=== PATIENT | female | born 1985 | race Caucasian/White ===

== ENCOUNTER → 2021-03-26 15:24 | Outpatient (CLI) | payer OTHER, SELFPAY ==
[2021-03-26] MEDS: COVID-19 VACC #3, MRNA(MOD) 50 MCG/0.25 ML VIAL IM (15:28)
== END ==
PROVIDERS: Visit Provider Internal Medicine
DX: Z23 Encounter for immunization (principal)
CPT/HCPCS: 0013A; 91301

== ENCOUNTER → 2022-12-20 10:21 | Outpatient (CLI) | payer OTHER, SELFPAY | PROVIDERS: Visit Provider Student in an Organized Health Care Education/Training Program | DX: M54.50 Low back pain, unspecified (principal) | CPT/HCPCS: 87086 ==

== ENCOUNTER 2022-12-20 10:35 | Observation (INO) | payer OTHER, SELFPAY ==
[2022-12-20 11:23] VITALS: BP 165/108; PULSE 90; RESP 19; TEMP 36.3; O2SAT 100; BMI 34.3
[2022-12-20 11:49] LABS: Add Manual Diff / Slide Review NO; Basophils Absolute Auto 0 /uL (0-100); Basophils Percent Auto 0.6 % (0-2); Eosinophils Absolute Auto 200 /uL (0-450); Eosinophils Percent Auto 3.9 % (2-4); Hematocrit 39.5 % (36-46); Hemoglobin 13.2 g/dL (12.0-16.0); Lymphocytes Absolute Auto 1400 /uL (1100-4500); Lymphocytes Percent Auto 22.8 % (25-40); Mean Corpuscular HGB Conc 33.3 % (30-36); Mean Corpuscular Hemoglobin 27.9 PG (26-34); Mean Corpuscular Volume 83.7 fL (80-100); Monocytes Absolute Auto 200 /uL (0-900); Neutrophils Absolute Auto 4100 /uL (1500-7000); Neutrophils Percent Auto 68.7 % (50-75); Platelet Count 299 X10^3/uL (150-400); Red Blood Cell Count 4.72 X10^6/uL (4.0-5.2); Red Cell Distribution Width 13.1 % (11.6-14.8)
[2022-12-20 12:01] LABS: Albumin 4.3 g/dL (3.5-5.0); Albumin Globulin Ratio 1.2 (1.0-2.8); Alkaline Phosphatase 181 U/L (38-126); Aspartate Aminotransferase 449 IU/L (14-36); BUN Creatinine Ratio 12.4 (6-22); Bilirubin Total 0.6 mg/dL (0.2-1.3); Blood Urea Nitrogen 12 mg/dL (7-17); Calcium 8.9 mg/dL (8.4-10.2); Carbon Dioxide 26 mmol/L (22-32); Chloride 105 mmol/L (98-107); Estimated Glomerular Filt Rate > 60 mL/min (>60); Globulin 3.7 g/dL (1.7-4.1); Glucose 98 mg/dL (70-100); HEMOLYSIS < 15 (0-50); Lipase 1363 U/L (23-300); Potassium 4.3 mmol/L (3.4-5.1); Sodium 137 mmol/L (137-145)
[2022-12-20 12:08] LABS: Alanine Aminotransferase 394 IU/L (<35)
--- NOTE | 2022-12-20 13:15 | DI.US.S_ITS ---
PROCEDURE: US ABDOMEN LIMITED INDICATIONS: abd pain, elevated lfts TECHNIQUE: Real-time scanning was performed of the abdominal and retroperitoneal organs, with image documentation. COMPARISON: None. FINDINGS: Liver: Increased liver echogenicity. Gallbladder: Cholelithiasis, nonmobile at the neck. Positive sonographic Bell sign. Borderline wall thickening at 3 millimeters. Biliary ducts: Intrahepatic bile ducts are non-dilated. Extrahepatic bile duct caliber measures 4 mm. Normal is 6-7 mm or less in diameter, or 10 mm or less post-cholecystectomy. Pancreas: Visualized portions of the pancreas are sonographically normal. Miscellaneous: No free abdominal fluid. IMPRESSION: Nonmobile gallstone in the gallbladder neck. Positive sonographic Bell sign and borderline wall thickening. Findings are concerning for acute cholecystitis. Increased liver echogenicity, presumably hepatic steatosis. Dictated by: Randolph Hunter M.D. on 12/20/2022 at 14:19 Approved by: Randolph Hunter M.D. on 12/20/2022 at 14:21
--- NOTE | 2022-12-20 14:44 | ED.ABDPAIN ---
HPI - Abdominal Pain General Chief Complaint: Abdominal Pain Stated Complaint: L/ Upper Abd pain/ tenderness Time Seen by Provider: 12/20/22 13:15 Source: patient Mode of arrival: Family Vehicle History of Present Illness HPI narrative: 37-year-old female history of seasonal allergies who presents with complaint of abdominal pain bilateral radiating towards her back. She states sudden onset yesterday has been persistent not quite as intense today. She states she was very sweaty yesterday. No documented fevers. She had nausea yesterday but no vomiting. She states pain is still present but controlled at this time. She did have little bit of diarrhea. No black or bloody stools. No dysuria urgency or frequency she felt her urine was little warm. No vaginal bleeding or discharge. Patient denies any other daily medications besides her allergy medication. No prior surgeries. No known drug allergies. No tobacco, 1 alcoholic drink once weekly, no recreational drugs or illicit. Related Data Home Medications Medication Instructions Recorded Confirmed loratadine 10 mg tablet (Claritin) 10 mg PO DAILY 12/20/22 12/20/22 Allergies Allergy/AdvReac Type Severity Reaction Status Date / Time No Known Drug Allergies Allergy Verified 12/20/22 11:27 Review of Systems Review of Systems ROS Unobtainable: All systems reviewed & are unremarkable except as noted in HPI and below Patient History Social History household members: friend(s) Smoking Status: Never smoker alcohol intake: current Smoking Status: Never smoker alcohol intake frequency: 0-2 drinks per day Substance Use Type: does not use Exam Narrative Exam Narrative: GENERAL: Alert and oriented x three, female in mild distress HEENT: Head normocephalic, atraumatic, EOMI, pupils reactive, face symmetric, moist mucous membranes NECK: Supple, full range of motion CARDIOVASCULAR: Regular rate and rhythm without murmurs, rubs or gallops. RESPIRATORY: Breath sounds equal bilaterally, no wheezes rales or rhonchi. ABDOMEN: Soft, generalized tenderness particularly in right upper quadrant. Normoactive bowel sounds all 4 quadrants. No guarding or rebound, rigidity, no mass : No CVA tenderness EXTREMITIES: Normal range of motion, no clubbing or edema. Neurovascularly intact NEUROLOGICAL: Cranial nerves II through XII grossly intact. Moving all extremities SKIN: Warm, dry, no petechiae, no rashes or lesions. Initial Vital Signs Initial Vital Signs: Vital Signs Temperature 97.4 F L 12/20/22 11:23 Pulse Rate 90 12/20/22 11:23 Respiratory Rate 19 12/20/22 11:23 Blood Pressure 165/108 H 12/20/22 11:23 Pulse Oximetry 100 12/20/22 11:23 Oxygen Delivery Method Room Air 12/20/22 11:23 Course Orders Ordered: ED Orders 12/20/22 11:42 Complete Blood Count AUTO DIFF Stat Comprehensive Metabolic Panel Stat Lipase Stat Test Serum,Qual Stat 12/20/22 13:15 US abdomen limited Stat Acetaminophen (Acetaminophen 325 Mg Tablet) 650 mg PO Q6H [facility] Last Admin: 12/20/22 17:26 Dose: Not Given Documented By: TLS Gabapentin (Gabapentin 100 Mg Capsule) 300 mg PO TID [facility] Last Admin: 12/20/22 17:27 Dose: Not Given Documented By: TLS Lactated Ringer's (Lactated Ringers) 1,000 mls @ 100 mls/hr IV CONT [facility] Last Admin: 12/20/22 17:48 Dose: 100 mls/hr Documented By: TLS Ibuprofen (Ibuprofen 600 Mg Tablet) 600 mg PO Q6H [facility] Last Admin: 12/20/22 17:26 Dose: Not Given Documented By: TLS Morphine Sulfate (Morphine 4 Mg/Ml Inj) 3 mg IV Q4HR PRN PRN Reason: Pain, Severe (7-10) Naloxone HCl (Naloxone 0.4 Mg/Ml Vial) 0.2 mg IV Q2MIN PRN PRN Reason: Opiate Reversal Ondansetron HCl (Ondansetron 4 Mg Odt) 4 mg PO NOW PRN PRN Reason: Nausea And Vomiting Ondansetron HCl (Ondansetron 4 Mg/2 Ml Inj) 4 mg IV NOW PRN PRN Reason: Nausea And Vomiting Ondansetron HCl (Ondansetron 4 Mg/2 Ml Inj) 4 mg IV Q8HR PRN PRN Reason: Nausea And Vomiting Oxycodone HCl (Oxycodone Ir 5 Mg Tablet) 5 mg PO Q3H PRN PRN Reason: Pain, Moderate (4-6) Scopolamine (Scopolamine 1 Patch) 1 patch TOP Q72H [facility] Last Admin: 12/20/22 17:46 Dose: 1 patch Documented By: TLS Discontinued Medications Sodium Chloride (Normal Saline 0.9%) 1,000 mls @ 1,000 mls/hr IV BOLUS ONE Stop: 12/20/22 15:43 Last Admin: 12/20/22 15:07 Dose: 1,000 mls/hr Documented By: TESSA Piperacillin Sod/Tazobactam (Sod 4.5 gm/ Sodium Chloride) 100 mls @ 200 mls/hr IV NOW ONE Stop: 12/20/22 14:54 Last Infusion: 12/20/22 15:46 Dose: 0 mls/hr Documented By: Admin: 12/20/22 15:07 Dose: 200 mls/hr Documented By: TESSA Cefazolin Sodium 2 gm/ Sodium (Chloride) 100 mls @ 200 mls/hr IV INTRA-OP ONE Stop: 12/20/22 16:32 Last Admin: 12/20/22 17:47 Dose: 200 mls/hr Documented By: TLS Vital Signs Vital signs: Vital Signs - 8 hr 12/20/22 11:23 Temperature 97.4 F L Pulse Rate 90 Respiratory Rate 19 Blood Pressure 165/108 H Pulse Oximetry 100 Oxygen Delivery Method Room Air MDM - Abdominal Pain Lab Data 12/20/22 11:42 12/20/22 11:42 Labs: Lab Results 12/20/22 12/20/22 12/20/22 Range/Units 11:42 11:42 11:42 WBC 6.0 (4.5-11.0) X10^3/uL RBC 4.72 (4.0-5.2) X10^6/uL Hgb 13.2 (12.0-16.0) g/dL Hct 39.5 (36-46) % MCV 83.7 (80-100) fL MCH 27.9 (26-34) PG MCHC 33.3 (30-36) % RDW 13.1 (11.6-14.8) % Plt Count 299 (150-400) X10^3/uL Neut % (Auto) 68.7 (50-75) % Lymph % (Auto) 22.8 L (25-40) % [place] % (Auto) 4.0 (3-14) % Eos % (Auto) 3.9 (2-4) % Baso % (Auto) 0.6 (0-2) % Neut # (Auto) 4100 (1404-4819) /uL Lymph # (Auto) 1400 (2541-0309) /uL [place] # (Auto) 200 (0-900) /uL Eos # (Auto) 200 (0-450) /uL Baso # (Auto) 0 (0-100) /uL Sodium 137 (137-145) mmol/L Potassium 4.3 (3.4-5.1) mmol/L Chloride 105 (98-107) mmol/L Carbon Dioxide 26 (22-32) mmol/L BUN 12 (7-17) mg/dL Creatinine 0.97 (0.52-1.04) mg/dL Estimated GFR > 60 (>60) mL/min BUN/Creatinine Ratio 12.4 (6-22) Glucose 98 (70-100) mg/dL Calcium 8.9 (8.4-10.2) mg/dL Total Bilirubin 0.6 (0.2-1.3) mg/dL AST 449 H (14-36) IU/L ALT 394 H (<35) IU/L Alkaline Phosphatase 181 H (38-126) U/L Total Protein 8.0 (6.3-8.2) g/dL Albumin 4.3 (3.5-5.0) g/dL Globulin 3.7 (1.7-4.1) g/dL Albumin/Globulin Ratio 1.2 (1.0-2.8) Lipase 1363 H (23-300) U/L Serum , Qual Negative (Negative) Imaging Data US - abdomen: Radiologist's Impression: [address] [address] Ultrasound Report Signed Patient: Brooklyn Lehman MR#: [id number] : 1985 Acct:[id number] Age/Sex: 37 / F Date of Service: 12/20/22 Loc: ED Accession Number: [id number] ?? Procedure: US abdomen limited Ordering Provider: Amina Ndiaye D.O. PROCEDURE:? US ABDOMEN LIMITED ? INDICATIONS:? abd pain, elevated lfts ? TECHNIQUE:? Real-time scanning was performed of the abdominal and retroperitoneal organs, with image documentation.? ? COMPARISON:? None. ? FINDINGS:? ? Liver:? Increased liver echogenicity. ? Gallbladder:? Cholelithiasis, nonmobile at the neck.? Positive sonographic Bell sign.? Borderline wall thickening at 3 millimeters. ? Biliary ducts:? Intrahepatic bile ducts are non-dilated.? Extrahepatic bile duct caliber measures 4 mm.? Normal is 6-7 mm or less in diameter, or 10 mm or less post-cholecystectomy.? ? Pancreas:? Visualized portions of the pancreas are sonographically normal.? ? Miscellaneous:? No free abdominal fluid.? ? ? IMPRESSION:? Nonmobile gallstone in the gallbladder neck.? Positive sonographic Bell sign and borderline wall thickening.? Findings are concerning for acute cholecystitis. ? Increased liver echogenicity, presumably hepatic steatosis. ? Dictated by: Randolph Hunter M.D. on 12/20/2022 at 14:19 ? ? Approved by: Randolph Hunter M.D. on 12/20/2022 at 14:21?? [facility] Narrative Medical decision making narrative: This is a 37-year-old female with complaint of abdominal pain that started yesterday some nausea but no vomiting with had sweats but no fevers. CBC is overall appropriate, chemistries show elevated AST, ALT and alk phos, lipase is 1363. Renal function electrolytes are otherwise normal. Serum is negative. Abdominal ultrasound shows nonmobile gallstone in the neck of the gallbladder, positive sonographic Bell's sign with borderline wall thickening. Spoke with Dr. Waddell, accepts for admission, she will put in orders. Discharge Plan Departure Patient Disposition: Home Clinical Impression: Cholecystitis, Cholelithiasis
[2022-12-20] MEDS: PIPERACILLIN/TAZO 4.5 GM in SODIUM CHLORIDE 0.9% 100 ML IV (15:07)
[2022-12-20] MEDS: SODIUM CHLORIDE 0.9% 1,000 ML 1000 ML IV (15:07)
[2022-12-20 15:21] LABS: Pregnancy Test Serum,Qual Negative (Negative)
[2022-12-20 15:56] VITALS: BP 129/83; PULSE 70; RESP 21; TEMP 35.9; O2SAT 100; O2SAT 98
[2022-12-20 17:19] VITALS: BMI 34.3
--- NOTE | 2022-12-20 17:45 | PC.NURSE ---
Pt is A&OX4, VSS, afebrile on RA. She arrived to room 204 this evening at approximately 1650 this afternoon. She reports mild abdominal pain in LUQ when pushing on abdomen. She denies nausea/vomitting. She is independent in the room. She declined pain medications but agreeable to scolpalamine patch. Clear liquid diet. IVF LR running in L AC PIV. SCD's placed, oriented to the room. Plan for NPO after midnight for surgical procedure tomorrow.
[2022-12-20] MEDS: SCOPOLAMINE 1 PATCH TOP (17:46)
[2022-12-20] MEDS: CEFAZOLIN VIAL 2 GM in SODIUM CHLORIDE 0.9% 100 ML IV (17:47)
[2022-12-20] MEDS: LACTATED RINGERS 1,000 ML 100 ML IV (17:48)
[2022-12-20 19:00] LABS: Appearance Urine UA CLEAR; Bilirubin Urine UA NEGATIVE (NEGATIVE); Color Urine UA YELLOW; Glucose Urine UA NEGATIVE (Negative); Ketones Urine UA 1+ (NEGATIVE); Leukocyte Esterase Urine UA NEGATIVE (NEGATIVE); Nitrite Urine UA NEGATIVE (Negative); Occult Blood Urine UA NEGATIVE (Negative); Protein Urine UA NEGATIVE (Negative); Specific Gravity Urine UA >=1.030 (1.000-1.035); Urobilinogen Urine UA 0.2 E.U./dL (0.2)
[2022-12-20 19:54] LABS: Bacteria Urine Few (2-10); Culture Indicated Urine Specimen Cultured; RBC Urine 0-1/HPF (0-5/HPF); Squamous Epithelial Cell Urine 1-5 /HPF (0-5/HPF); WBC Urine 1-5/HPF (0-5/HPF)
[2022-12-20 20:00] VITALS: BP 139/86; PULSE 74; RESP 16; TEMP 36.4; O2SAT 98
[2022-12-20] MEDS: GABAPENTIN 100 MG CAPSULE 300 MG PO (20:31)
[2022-12-20] MEDS: ONDANSETRON 4 MG ODT PO (20:31)
[2022-12-20] MEDS: ACETAMINOPHEN 325 MG TABLET 650 MG PO (20:32)
[2022-12-20] MEDS: IBUPROFEN 600 MG TABLET PO (20:32)
[2022-12-21] VITALS (14 sets, daily range): BP systolic 110–158; BP diastolic 45–91; PULSE 54–105; RESP 10–18; TEMP 35.6–36.9; O2SAT 95–100; BMI 34.3
--- NOTE | 2022-12-21 | PATH_ITS ---
[facility] Accession Number: [id number] No. of containers..01 Tissue . 01 Material submitted: . gallbladder - GALLBLADDER . 01 Diagnosis: Gallbladder, Cholecystectomy: Chronic cholecystitis and cholelithiasis. Negative for dysplasia and neoplasia. MRV 01/02/20232020 Local . 01 Electronically signed: . Alma Rosa Chamberlain MD, Pathologist NPI- [id number] . 01 Gross description: . The specimen is received in formalin labeled with the patient's name, , and gallbladder and consists of an intact gallbladder measuring 7.3 x 2.5 x 2.4 cm. The external surface is unremarkable. The cystic duct margin is inked blue. No pericystic lymph node is identified. The lumen contains multiple yellow bosselated calculi, measuring up to 1.6 cm in greatest dimension grossly obstructing the cystic duct and admixed with dark green viscous bile. The mucosa is green and velvety with yellow discoloration. No polyps or lesions are identified. The cage average 0.2 cm thick. Sales Engagement Manager sections to include the cystic duct margin and full-thickness sections are submitted in cassette A1. /[facility] 12/22/2022 1740 Local . 01 Pathologist provided ICD-10: K81.1 . 01 CPT . 263729 Specimen Comment: A courtesy copy of this report has been sent to [phone] Performed at: [facility] [address] [place] [address], [place], [place] [id number] MD Jv Eaton MD Phone: [phone]
[2022-12-21] MEDS: LACTATED RINGERS 1,000 ML 100 ML IV (04:15)
[2022-12-21 06:48] LABS: Add Manual Diff / Slide Review NO; Basophils Absolute Auto 100 /uL (0-100); Basophils Percent Auto 0.9 % (0-2); Eosinophils Absolute Auto 300 /uL (0-450); Eosinophils Percent Auto 4.9 % (2-4); Hematocrit 34.4 % (36-46); Hemoglobin 11.4 g/dL (12.0-16.0); Lymphocytes Absolute Auto 1900 /uL (1100-4500); Mean Corpuscular HGB Conc 33.2 % (30-36); Mean Corpuscular Hemoglobin 27.8 PG (26-34); Mean Corpuscular Volume 83.7 fL (80-100); Monocytes Absolute Auto 300 /uL (0-900); Monocytes Percent Auto 4.6 % (3-14); Neutrophils Absolute Auto 3500 /uL (1500-7000); Neutrophils Percent Auto 57.6 % (50-75); Platelet Count 260 X10^3/uL (150-400); Red Cell Distribution Width 13.3 % (11.6-14.8)
[2022-12-21 06:51] LABS: Alanine Aminotransferase 211 IU/L (<35); Albumin 3.4 g/dL (3.5-5.0); Albumin Globulin Ratio 1.2 (1.0-2.8); Alkaline Phosphatase 128 U/L (38-126); Aspartate Aminotransferase 129 IU/L (14-36); BUN Creatinine Ratio 8.8 (6-22); Bilirubin Total 0.4 mg/dL (0.2-1.3); Blood Urea Nitrogen 8 mg/dL (7-17); Carbon Dioxide 28 mmol/L (22-32); Chloride 106 mmol/L (98-107); Estimated Glomerular Filt Rate > 60 mL/min (>60); Globulin 2.8 g/dL (1.7-4.1); Glucose 91 mg/dL (70-100); HEMOLYSIS < 15 (0-50); Potassium 3.8 mmol/L (3.4-5.1); Sodium 137 mmol/L (137-145); Total Protein 6.2 g/dL (6.3-8.2)
--- NOTE | 2022-12-21 07:13 | P.HP_ITS ---
History of Present Illness History of Present Illness Date Patient Seen: 12/21/22 Time Patient Seen: 07:13 Date of Onset of Symptoms: 12/20/22 Chief complaint: L/ Upper Abd pain/ tenderness/sent by [facility] Narrative: Sudden onset RUQ pain, nausea, no emesis. US shows impacted stone in gall bladder neck with acute cholecystitis. Lab indicates gallstone pancreatitis as well. No previous surgeries. Works on the [employer]. Pain currently RUQ, dull, 4/10. [facility] Social History household members: friend(s) Smoking Status: Never smoker alcohol intake: current Meds Home Medications and Allergies Home Medications Medication Instructions Recorded Confirmed Type loratadine 10 mg tablet (Claritin) 10 mg PO DAILY 12/20/22 12/20/22 History Allergies Allergy/AdvReac Type Severity Reaction Status Date / Time No Known Drug Allergies Allergy Verified 12/20/22 11:27 Review of Systems Review of Systems ROS: Yes All systems reviewed with the patient and are negative except as otherwise documented Exam Vital Signs (past 8 hours): - 12/21/22 04:00 Temperature 98.4 F Pulse Rate 69 Respiratory Rate 16 Blood Pressure 117/71 Pulse Oximetry 97 Oxygen Flow Rate 0 Oxygen Delivery Method Room Air Oxygen Flow Rate 0 Const General: cooperative Nutritional Appearance: well nourished and overweight Orientation: alert, awake and oriented x3 HENMT Head: normocephalic and atraumatic Ears: hearing grossly normal bilaterally Eyes General: appearance normal, both eyes and all related structures Sclera: sclerae normal Neck Neck: trachea midline Resp Effort & Inspection: normal respiratory effort and able to speak in complete sentences Cardio Rate: regular rate Rhythm: regular rhythm GI Palpation: soft Other: not acute. Skin General: turgor normal Hair: normal (blue) Neuro General: patient alert, patient awake and patient oriented x3 Psych Mental Status: mental status grossly normal Judgment: judgment good Objective Labs 12/21/22 06:20 12/21/22 06:20 Labs: Laboratory Results - last 24 hr 12/20/22 12/20/22 12/20/22 11:42 11:42 11:42 WBC 6.0 RBC 4.72 Hgb 13.2 Hct 39.5 MCV 83.7 MCH 27.9 MCHC 33.3 RDW 13.1 Plt Count 299 Neut % (Auto) 68.7 Lymph % (Auto) 22.8 L [place] % (Auto) 4.0 Eos % (Auto) 3.9 Baso % (Auto) 0.6 Neut # (Auto) 4100 Lymph # (Auto) 1400 [place] # (Auto) 200 Eos # (Auto) 200 Baso # (Auto) 0 Sodium 137 Potassium 4.3 Chloride 105 Carbon Dioxide 26 BUN 12 Creatinine 0.97 Estimated GFR > 60 BUN/Creatinine Ratio 12.4 Glucose 98 Calcium 8.9 Total Bilirubin 0.6 AST 449 H ALT 394 H Alkaline Phosphatase 181 H Total Protein 8.0 Albumin 4.3 Globulin 3.7 Albumin/Globulin Ratio 1.2 Lipase 1363 H Serum , Qual Negative Urine Color Urine Appearance Urine pH Ur Specific [place] Urine Protein Urine Glucose (UA) Urine Ketones Urine Occult Blood Urine Nitrate Urine Bilirubin Urine Urobilinogen Ur Leukocyte Esterase Urine RBC Urine WBC Ur Squamous Epith Cells Urine Bacteria Ur Culture Indicated? 12/20/22 12/21/22 12/21/22 18:55 06:20 06:20 WBC 6.0 RBC 4.10 Hgb 11.4 L Hct 34.4 L MCV 83.7 MCH 27.8 MCHC 33.2 RDW 13.3 Plt Count 260 Neut % (Auto) 57.6 Lymph % (Auto) 32.0 [place] % (Auto) 4.6 Eos % (Auto) 4.9 H Baso % (Auto) 0.9 Neut # (Auto) 3500 Lymph # (Auto) 1900 [place] # (Auto) 300 Eos # (Auto) 300 Baso # (Auto) 100 Sodium 137 Potassium 3.8 Chloride 106 Carbon Dioxide 28 BUN 8 Creatinine 0.91 Estimated GFR > 60 BUN/Creatinine Ratio 8.8 Glucose 91 Calcium 8.0 L Total Bilirubin 0.4 AST 129 H ALT 211 H Alkaline Phosphatase 128 H Total Protein 6.2 L Albumin 3.4 L Globulin 2.8 Albumin/Globulin Ratio 1.2 Lipase Serum , Qual Urine Color Yellow Urine Appearance Clear Urine pH 5.0 Ur Specific [place] >=1.030 H Urine Protein Negative Urine Glucose (UA) Negative Urine Ketones 1+ H Urine Occult Blood Negative Urine Nitrate Negative Urine Bilirubin Negative Urine Urobilinogen 0.2 Ur Leukocyte Esterase Negative Urine RBC 0-1/hpf Urine WBC 1-5/hpf Ur Squamous Epith Cells 1-5 /hpf Urine Bacteria Few (2-10) H Ur Culture Indicated? Specimen cultured Assessment & Plan Assessment & Plan narrative: Acute cholecystitis and gallstone pancreatitis Plan: lap sherron Time Spent With Patient Time with patient: 30 to 49 minutes with 50% spent counseling/coordinating care Quality VTE Deep Vein Thrombosis/Pulmonary Embolism Present on Admission: No
--- NOTE | 2022-12-21 08:43 | PC.NURSE ---
Addendum entered by Kelly Duncan R.N. 12/21/22 08:46: Correction,patient transported to preop at 0820 Original Note: 4atient up to BR this a.m. at 0810, preop arrived to transport patient via w/ch/`2500-=
[2022-12-21] MEDS: CEFAZOLIN 2 GM/100 ML PREMIX 100 ML IV (09:29)
--- NOTE | 2022-12-21 09:55 | SUR.OPER ---
Supine on padded OR bed, head on pillow, arms secured on padded arm boards at <90 degrees abduction, legs uncrossed, safety belt at thigh, tape over blanket over lower legs.
--- NOTE | 2022-12-21 10:11 | PM.OP.1 ---
Operative Date/Time/Diagnoses Date of procedure: 12/21/22 Time of procedure: 10:11 Pre-op diagnosis: Gallstone pancreatitis Post-op diagnosis: same Procedure & Clinicians Procedure: Laparoscopic cholecystectomy Same procedure as scheduled: Yes Indications: Gallstone pancreatitis Surgeon: Alma Rosa Waddell Nuclear Fuel Enrichment Technician: Alexi Troy Anesthesia Type: General and Local Operative Notes Findings: No evidence of acute cholecystitis. Gallbladder filled with small stones Closure Type: primary Specimen(s): other (Gallbladder) Estimated Blood Loss (mL): 5 Blood products transfused: none Procedure in detail: Preop diagnosis: Gallstone pancreatitis Postop diagnosis: Same Operative procedure: Laparoscopic cholecystectomy Surgeon: Diana Waddell MD senior agricultural assistant: MARIPOSA Douglass Findings: No evidence of acute cholecystitis. Gallbladder filled with small stones. Procedure: Patient placed in a supine position. Prepped and draped in sterile fashion. Supraumbilical port site placed using open technique a 12 mm port. Insufflation began all other ports were placed under direct vision including a 10 mm port midepigastrium and 2 5 mm ports in the right lateral abdomen. Gallbladder is grasped pushed cephalad for exposure. Cystic duct was identified and dissected clean. One clip placed distally 2 clips placed proximally and transected. Cystic artery was identified dissected free, clipped once distally once proximally and transected. Gallbladder was removed from the fossa bed with electrocautery. Small amount of bile spillage but no stones. Gallbladder was then placed into an Endo-Catch bag and pulled through the supraumbilical port site intact. I went back to irrigate the operative site to remove any residual blood or bile. Once satisfied with the outcome I removed ports and began closure. Closure consisted of interrupted 2-0 Vicryl for fascial closure. Skin was closed with a running 4-0 Monocryl. Steri-Strips and sterile dressings were placed. Patient was awakened, extubated, taken to recovery room stable condition. Needle, instrument, sponge counts were correct. Steri-Strips and sterile dressings were placed. Blood loss: 5 mL Specimen: Gallbladder Complications: none Post-operative Condition: stable Disposition: PACU
[2022-12-21] MEDS: ACETAMINOPHEN 325 MG TABLET 650 MG PO ×2 (10:46→15:41)
[2022-12-21] MEDS: OXYCODONE IR 5 MG TABLET PO ×2 (10:46→13:16)
[2022-12-21] MEDS: GABAPENTIN 300 MG CAPSULE PO ×2 (11:29→15:38)
[2022-12-21] MEDS: CELECOXIB 200 MG CAPSULE PO (11:39)
--- NOTE | 2022-12-21 12:08 | CM.DANOTE ---
DCP Assessment Note: Patient is a 37yo F here following lap sherron with Dr. Waddell on 12/21. PCP: None. HYDRAULIC PLUMBER HELPER provided list of PCPs accepting new patient's in area with her insurance. Payer: [facility] Uniform and self pay HYDRAULIC PLUMBER HELPER reviewed EMR. Per nursing staff, likely home later today if medically stable/can tolerate a diet. HYDRAULIC PLUMBER HELPER entered room and introduced self and role. Patient was resting in bed and appeared A/Ox4. Patient was accompanied by friends Lennie and Alina. Patient lives with roommate Laurita ([phone]) in [place]. Patient has 20 steps with railings to get into house. Patient has a cane and wheelchair but doesn't use it at baseline. Patient could stay with friend with one step overnight if patient d/c today and doesn't feel like she can get into her apartment. Patient's emergency contact is her mom, Kat ([phone]). Mom will be here within the next two days from [place] to assist with patient's recovery. Patient drives at baseline but friends can transport her if needed. Plan: d/c home with friends when medically stable/can tolerate a diet. Transport with friends in POV. No needs from CM team identified at this time. CM team will continue to follow as needed. NICHOLE Willard Discharge Planning/Care Management CM Discharge Assessment Start: 12/21/22 12:02 Freq: Status: Active Protocol: Document 12/21/22 12:02 (Rec: 12/21/22 12:05 [id number]) Discharge Planning Assessment Assigned Regulatory Compliance Director NICHOLE Cline DPOA/Assigned Designee Name Kat (mother) Contact Information [phone] Advance Directives? No History Provided By Patient,Medical Record Prior Living Arrangements Apartment/Condo Household Members friend(s) Comment lives with roommate Laurita ) in [place]. Has other friends Lennie and Alina that can help assist upon d/c Type of transporation used prior to Drives own vehicle admit Independent with ADL's Yes Is patient alert and oriented? Yes DME Already Rented / Owned Wheelchair,Cane Comment owns but does not use cane and wheelchair. 20 steps with railing to get into house. can stay with friend for the night if cannot do stairs Barriers to Discharge Yes Comment can d/c once tolerate diet Discharge Plan Home Transportation Arrangement friend in POV Whiteboard Updated in Patient Room with Yes name and ext. # of Regulatory Compliance Director Review Status In Process Next Review Type Continued Stay Review
--- NOTE | 2022-12-21 12:18 | PC.NURSE ---
Pt returned from PACU at approximately 1110 this a.m. She is A&OX4,VSS, afebrile on RA. Dressings to abdomen are c/d/i. She reports pain 5/10, +bs x4 ausculated. She is able to ambulate from stretcher to bed and then from bed to bathroom and voids without difficulty. She tolerates soup for lunch well and juice. Continuous monitoring.
--- NOTE | 2022-12-21 18:42 | PC.NURSE ---
Pt is cleared for discharge this afternoon, after tolerating meals, mobilizing independently to BR. VSSS, denies n/v and reports abdominal pain well controlled with prn pain medications. She verbalizes understanding of activity limitations, medications, site care, s/sx of infection as well as making a follow up appointment in x2 weeks with MD Waddell. She is escorted via w/ch for discharge home with roomate in private vehicle with all of her belongings at approximately 1815 this evening.
== END 2022-12-21 18:00 | disposition home or self-care (01) | DRG 419 ==
LOC: ED 15:48 → AC 15:57
PROVIDERS: Admitting Provider Surgery; Emergency Provider Emergency Medicine; Referring Provider Emergency Medicine; Visit Provider Surgery
PROC: 0FT44ZZ Resection of Gallbladder, Percutaneous Endoscopic Approach (ICD-10-PCS; CPT 47562; principal; 2022-12-21 08:45)
DX: K85.10 Biliary acute pancreatitis without necrosis or infection (principal); K80.20 Calculus of gallbladder without cholecystitis without obstruction
CPT/HCPCS: 47562; 36415; 47563; 76705; 80053; 81001; 83690; 84703; 85025; 87086; 96365; 99221; 99283; 99284; G0378; J0690; J1100; J2405; J2543; J2704; J3010; J3490

== ENCOUNTER 2023-01-05 10:54 | Emergency (ER) | payer OTHER, SELFPAY ==
[2023-01-05 11:00] VITALS: BP 151/97; PULSE 89; RESP 15; TEMP 36.9; O2SAT 96; BMI 34.3
--- NOTE | 2023-01-05 11:04 | DI.CT.S_ITS ---
PROCEDURE: CT ABDOMEN PELVIS W CON INDICATIONS: abd pain, post cholecystectomy on 12/21 TECHNIQUE: After the administration of IV contrast, axial sections were acquired from the lung bases to the pubic symphysis. Coronal and sagittal reformats were performed. For radiation dose reduction, the following was used: automated exposure control, adjustment of mA and/or kV according to patient size. COMPARISON: [facility], , ABDOMEN LIMITED, 12/20/2022, 13:30. FINDINGS: Image quality: Excellent. Lung bases: Unremarkable. Heart: No significant findings. ABDOMEN: Liver: Liver is enlarged measuring 18.3 cm with steatosis. Gallbladder: Removed. Gallbladder fossa is unremarkable. No fluid. Biliary ducts: Unremarkable. Pancreas: Unremarkable. Spleen: Unremarkable. Adrenal Glands: Unremarkable. Kidneys and Ureters: Simple right renal cyst is present. Stomach and Bowel: Stomach, small bowel loops, and colon are unremarkable. Appendix is normal. Peritoneum: No abnormal intraperitoneal fluid. No free air. Ventral Wall: No hernia. Abdominal Nodes: No retroperitoneal or mesenteric adenopathy by size criteria. Vessels: Aorta and inferior vena cava are normal in size. PELVIS: Pelvic Organs: Unremarkable. Bladder: Unremarkable. Pelvic Nodes: No enlarged lymph nodes. Miscellaneous: No inguinal hernias are seen. Bones: Unremarkable. IMPRESSION: Cholecystectomy without abnormal fluid in the gallbladder fossa. No free fluid or free air within the abdomen/pelvis. Dictated by: Iwona Menezes M.D. on 01/05/2023 at 12:34 Approved by: Iwona Menezes M.D. on 01/05/2023 at 12:35
--- NOTE | 2023-01-05 11:56 | ED.ABDPAIN ---
HPI - Abdominal Pain <Mone Marsh PA-C - Last Filed: 01/05/23 13:42> General Chief Complaint: Abdominal Pain Stated Complaint: Gal Bldr surg T-15/pain/tenderness, sent by Surg Time Seen by Provider: 01/05/23 11:04 Source: patient Mode of arrival: Ambulatory History of Present Illness HPI narrative: Patient is a 37-year-old female status post laparoscopic cholecystectomy on 12/21 for gallstone pancreatitis. She returned to clinic today to see Dr. Cunningham for a postop check. During his exam, she was noted to have right upper quadrant pain on palpation. She was feeling well prior to today, has been tolerating a bland diet and denies fever or chills. She denies any nausea or vomiting, no urinary symptoms. Dr. Cunningham advised her to come to the emergency department for labs and CT. Related Data Home Medications Medication Instructions Recorded Confirmed loratadine 10 mg tablet (Claritin) 10 mg PO DAILY 12/20/22 01/05/23 Previous Rx's Medication Instructions Recorded celecoxib 200 mg capsule (Celebrex) 200 mg PO BID #20 caps 12/21/22 gabapentin 300 mg capsule 300 mg PO TID #30 caps 12/21/22 Allergies Allergy/AdvReac Type Severity Reaction Status Date / Time No Known Drug Allergies Allergy Verified 01/05/23 11:00 Review of Systems <Mnoe Marsh PA-C - Last Filed: 01/05/23 13:42> Review of Systems ROS Unobtainable: All systems reviewed & are unremarkable except as noted in HPI and below Patient History <Mone Marsh PA-C - Last Filed: 01/05/23 13:42> Surgical History Hx laparoscopic cholecystectomy Social History household members: friend(s) Smoking Status: Never smoker alcohol intake: current Smoking Status: Never smoker alcohol intake frequency: holidays/special occasions only Substance Use Type: does not use Exam <Mone Marsh PA-C - Last Filed: 01/05/23 13:42> Narrative Exam Narrative: GENERAL: 37 year old patient appears stated age. Well-developed patient, in no distress. NEURO: AOx3. HEAD: Atraumatic. Normocephalic. EYES: Pupils equal round and reactive. Extraocular motions intact. No scleral icterus. No injection or drainage. ENT: Nose without bleeding or purulent drainage. CARDIOVASCULAR: Regular rate and rhythm without murmurs, gallops, or rubs. RESPIRATORY: Clear to auscultation. Breath sounds equal bilaterally. No wheezes, rales, or rhonchi. GASTROINTESTINAL: Abdomen soft, right upper quadrant tenderness to palpation. No CVA tenderness EXTREMITIES: No edema or joint tenderness. SKIN: No rash or erythema of visible areas Initial Vital Signs Initial Vital Signs: Vital Signs Temperature 98.4 F 01/05/23 11:00 Pulse Rate 89 01/05/23 11:00 Respiratory Rate 15 01/05/23 11:00 Blood Pressure 151/97 H 01/05/23 11:00 Pulse Oximetry 96 01/05/23 11:00 Oxygen Delivery Method Room Air 01/05/23 11:00 <Ruslan Merritt MD - Last Filed: 01/13/23 07:09> Initial Vital Signs Initial Vital Signs: Vital Signs Temperature 98.4 F 01/05/23 11:00 Pulse Rate 89 01/05/23 11:00 Respiratory Rate 15 01/05/23 11:00 Blood Pressure 151/97 H 01/05/23 11:00 Pulse Oximetry 96 01/05/23 11:00 Oxygen Delivery Method Room Air 01/05/23 11:00 Course <Mone Marsh PA-C - Last Filed: 01/05/23 13:42> Orders Ordered: Discontinued Medications Morphine Sulfate (Morphine 2 Mg/Ml Inj) 2 mg IV NOW ONE Stop: 01/05/23 11:56 Last Admin: 01/05/23 12:20 Dose: 2 mg Documented By: BA Ondansetron HCl (Ondansetron 4 Mg/2 Ml Inj) 4 mg IV NOW ONE Stop: 01/05/23 11:56 Last Admin: 01/05/23 12:19 Dose: 4 mg Documented By: BA Vital Signs Vital signs: Vital Signs - 8 hr 01/05/23 11:00 01/05/23 12:16 01/05/23 12:17 Temperature 98.4 F Pulse Rate 89 76 Respiratory Rate 15 18 Blood Pressure 151/97 H 152/95 H Pulse Oximetry 96 96 Oxygen Delivery Method Room Air Room Air 01/05/23 12:17 01/05/23 13:14 01/05/23 13:15 Temperature Pulse Rate 77 74 Respiratory Rate Blood Pressure 135/67 Pulse Oximetry 98 Oxygen Delivery Method <Ruslan Merritt MD - Last Filed: 01/13/23 07:09> Orders Ordered: Discontinued Medications Morphine Sulfate (Morphine 2 Mg/Ml Inj) 2 mg IV NOW ONE Stop: 01/05/23 11:56 Last Admin: 01/05/23 12:20 Dose: 2 mg Documented By: BA Ondansetron HCl (Ondansetron 4 Mg/2 Ml Inj) 4 mg IV NOW ONE Stop: 01/05/23 11:56 Last Admin: 01/05/23 12:19 Dose: 4 mg Documented By: BA Vital Signs Vital signs: Vital Signs - 8 hr 01/05/23 11:00 01/05/23 12:16 01/05/23 12:17 Temperature 98.4 F Pulse Rate 89 76 Respiratory Rate 15 18 Blood Pressure 151/97 H 152/95 H Pulse Oximetry 96 96 Oxygen Delivery Method Room Air Room Air 01/05/23 12:17 01/05/23 13:14 01/05/23 13:15 Temperature Pulse Rate 77 74 Respiratory Rate Blood Pressure 135/67 Pulse Oximetry 98 Oxygen Delivery Method MDM - Abdominal Pain <Mone Marsh PA-C - Last Filed: 01/05/23 13:42> Lab Data 01/05/23 11:46 01/05/23 11:46 Labs: Lab Results 01/05/23 01/05/23 Range/Units 11:46 11:46 WBC 6.4 (4.5-11.0) X10^3/uL RBC 4.68 (4.0-5.2) X10^6/uL Hgb 13.1 (12.0-16.0) g/dL Hct 39.3 (36-46) % MCV 83.8 (80-100) fL MCH 28.0 (26-34) PG MCHC 33.4 (30-36) % RDW 13.1 (11.6-14.8) % Plt Count 305 (150-400) X10^3/uL Neut % (Auto) 61.1 (50-75) % Lymph % (Auto) 29.7 (25-40) % [place] % (Auto) 5.0 (3-14) % Eos % (Auto) 3.3 (2-4) % Baso % (Auto) 0.9 (0-2) % Neut # (Auto) 3900 (5706-7510) /uL Lymph # (Auto) 1900 (7526-1628) /uL [place] # (Auto) 300 (0-900) /uL Eos # (Auto) 200 (0-450) /uL Baso # (Auto) 100 (0-100) /uL Sodium 138 (137-145) mmol/L Potassium 3.9 (3.4-5.1) mmol/L Chloride 105 (98-107) mmol/L Carbon Dioxide 24 (22-32) mmol/L BUN 17 (7-17) mg/dL Creatinine 0.85 (0.52-1.04) mg/dL Estimated GFR > 60 (>60) mL/min BUN/Creatinine Ratio 20.0 (6-22) Glucose 88 (70-100) mg/dL Calcium 9.3 (8.4-10.2) mg/dL Total Bilirubin 0.2 (0.2-1.3) mg/dL AST 20 (14-36) IU/L ALT 17 (<35) IU/L Alkaline Phosphatase 81 (38-126) U/L Total Protein 8.1 (6.3-8.2) g/dL Albumin 4.4 (3.5-5.0) g/dL Globulin 3.7 (1.7-4.1) g/dL Albumin/Globulin Ratio 1.2 (1.0-2.8) Lipase 231 (23-300) U/L Point of care testing: Point of Care Testing Test Results Negative Urine Dip Bedside Urine Glucose Negative Bedside Urine Bilirubin - Negative Bedside Urine Ketone - Negative Urine Specific Williamson 1.000 Bedside Urine Occult Blood + Bedside Urine pH 6.0 Bedside Urine Protein - Negative Bedside Urine Urobilinogen - Negative Bedside Urine Nitrite - Negative Bedside Urine Leukocytes - Negative Esterase Imaging Data CT scan - abdomen/pelvis: Radiologist's Impression: PROCEDURE:? CT ABDOMEN PELVIS W CON ? INDICATIONS:? abd pain, post cholecystectomy on 12/21 ? TECHNIQUE:? After the administration of IV contrast, axial sections were acquired from the lung bases to the pubic symphysis.? Coronal and sagittal reformats were performed.? For radiation dose reduction, the following was used:? automated exposure control, adjustment of mA and/or kV according to patient size. ? COMPARISON:? [facility], , ABDOMEN LIMITED, 12/20/2022, 13:30. ? FINDINGS:? Image quality:? Excellent.? ? Lung bases:? Unremarkable.? ? Heart:? No significant findings. ? ? ABDOMEN: Liver:? Liver is enlarged measuring 18.3 cm with steatosis.? Gallbladder:? Removed.? ? Gallbladder fossa is unremarkable.? No fluid. Biliary ducts:? Unremarkable.? ? Pancreas:? Unremarkable.? ? Spleen:? Unremarkable.? ? Adrenal Glands:? Unremarkable.? ? Kidneys and Ureters:? Simple right renal cyst is present. ? Stomach and Bowel:? Stomach, small bowel loops, and colon are unremarkable.? Appendix is normal. Peritoneum:? No abnormal intraperitoneal fluid.? No free air.? ? Ventral Wall: ? No hernia.? Abdominal Nodes:? No retroperitoneal or mesenteric adenopathy by size criteria.? Vessels:? Aorta and inferior vena cava are normal in size.? ? PELVIS: Pelvic Organs:? Unremarkable.? ? Bladder:? Unremarkable.? ? Pelvic Nodes: No enlarged lymph nodes.? Miscellaneous: No inguinal hernias are seen. ? ? ? Bones:? Unremarkable.? IMPRESSION:? ? Cholecystectomy without abnormal fluid in the gallbladder fossa.? No free fluid or free air within the abdomen/pelvis. ? ? Dictated by: Iwona Menezes M.D. on 01/05/2023 at 12:34 ? ? Approved by: Iwona Menezes M.D. on 01/05/2023 at 12:35? MDM Narrative Medical decision making narrative: Multiple etiologies for patient's symptoms considered including, but not limited to: Postoperative infection, bile leak, bleeding, hematoma. Labs very reassuring with normal white count, normal lipase. CT abdomen/pelvis without any right upper quadrant fluid collection or abnormality. Discussed with Dr. Cunningham on the phone; he agrees our findings today are reassuring and patient can be discharged with follow up in surgery clinic as needed. Discussed pain management, diet, exercise, return precautions with patient. Patient's symptoms improved over duration of stay with above-stated therapies. Findings and discharge diagnosis discussed with patient/family followed by verbalization of understanding Return precautions discussed with patient/family whom verbalize understanding of diagnosis and plan <Ruslan Merritt MD - Last Filed: 01/13/23 07:09> Lab Data Labs: Lab Results 01/05/23 01/05/23 Range/Units 11:46 11:46 WBC 6.4 (4.5-11.0) X10^3/uL RBC 4.68 (4.0-5.2) X10^6/uL Hgb 13.1 (12.0-16.0) g/dL Hct 39.3 (36-46) % MCV 83.8 (80-100) fL MCH 28.0 (26-34) PG MCHC 33.4 (30-36) % RDW 13.1 (11.6-14.8) % Plt Count 305 (150-400) X10^3/uL Neut % (Auto) 61.1 (50-75) % Lymph % (Auto) 29.7 (25-40) % [place] % (Auto) 5.0 (3-14) % Eos % (Auto) 3.3 (2-4) % Baso % (Auto) 0.9 (0-2) % Neut # (Auto) 3900 (7304-3211) /uL Lymph # (Auto) 1900 (2473-2688) /uL [place] # (Auto) 300 (0-900) /uL Eos # (Auto) 200 (0-450) /uL Baso # (Auto) 100 (0-100) /uL Sodium 138 (137-145) mmol/L Potassium 3.9 (3.4-5.1) mmol/L Chloride 105 (98-107) mmol/L Carbon Dioxide 24 (22-32) mmol/L BUN 17 (7-17) mg/dL Creatinine 0.85 (0.52-1.04) mg/dL Estimated GFR > 60 (>60) mL/min BUN/Creatinine Ratio 20.0 (6-22) Glucose 88 (70-100) mg/dL Calcium 9.3 (8.4-10.2) mg/dL Total Bilirubin 0.2 (0.2-1.3) mg/dL AST 20 (14-36) IU/L ALT 17 (<35) IU/L Alkaline Phosphatase 81 (38-126) U/L Total Protein 8.1 (6.3-8.2) g/dL Albumin 4.4 (3.5-5.0) g/dL Globulin 3.7 (1.7-4.1) g/dL Albumin/Globulin Ratio 1.2 (1.0-2.8) Lipase 231 (23-300) U/L Point of care testing: Point of Care Testing Test Results Negative Urine Dip Bedside Urine Glucose Negative Bedside Urine Bilirubin - Negative Bedside Urine Ketone - Negative Urine Specific Williamson 1.000 Bedside Urine Occult Blood + Bedside Urine pH 6.0 Bedside Urine Protein - Negative Bedside Urine Urobilinogen - Negative Bedside Urine Nitrite - Negative Bedside Urine Leukocytes - Negative Esterase Discharge Plan Departure Patient Disposition: Home Clinical Impression: Abdominal pain Instructions: DI for Abdominal Pain-Adult Activity Restrictions/Additional Instructions: *You have been diagnosed with acute abdominal pain. Your labs did not show any signs of infection and your CT scan did not show any fluid, hematoma or other postoperative complication. I would continue to drink lots of water, slowly advance your diet, slowly increase your activity. If you continue to have abdominal pain, you can follow-up with your primary care or with the surgery clinic. If you develop abdominal pain that is associated with fever or intractable nausea and vomiting, please return to the emergency department I also discussed your workup today with Dr. Cunningham who agrees that no further workup is indicated today unless further symptoms develop. *What to do: *Please continue to take your regular medications as directed. [ ] New medication prescriptions sent to your pharmacy: [ ] [ ] New medication written as a paper prescription [x] No new medications given *Please follow up with your primary care provider in 2-3 days, call for an appointment. Let them know you were seen in the Emergency Department and that we ask that you be seen in follow up. We will electronically transmit a record of today's note if your PCP is in our system *If you do not have a primary care provider please contact the [facility] Resource line at [phone]. They will ask some questions about your medical history and help get you set up with a doctor in the community. *Return to Emergency Department if you should have any new, worsening or concerning symptoms, such as [fever greater than 101 F, shaking chills, worsening pain, persistent vomiting or other concerning symptoms]. Prescriptions: No Action loratadine [Claritin] 10 mg Tablet 10 mg PO DAILY celecoxib [Celebrex] 200 mg Capsule 200 mg PO BID Qty: 20 1RF gabapentin 300 mg Capsule 300 mg PO TID Qty: 30 0RF Referrals: Miscellaneous,Doctor[facility] [Primary Care Provider] - Stand Alone Forms: Patient Portal/API <Ruslan Merritt MD - Last Filed: 01/13/23 07:09> Cosign ED Attending Luature Attestation: I was immediately available in the department for consultation. ?This documentation has been reviewed and I agree with assessment and plan. Supervised by Ruslan Merritt MD
[2023-01-05 11:57] LABS: Add Manual Diff / Slide Review NO; Basophils Absolute Auto 100 /uL (0-100); Basophils Percent Auto 0.9 % (0-2); Eosinophils Absolute Auto 200 /uL (0-450); Eosinophils Percent Auto 3.3 % (2-4); Hematocrit 39.3 % (36-46); Hemoglobin 13.1 g/dL (12.0-16.0); Lymphocytes Absolute Auto 1900 /uL (1100-4500); Lymphocytes Percent Auto 29.7 % (25-40); Mean Corpuscular HGB Conc 33.4 % (30-36); Mean Corpuscular Volume 83.8 fL (80-100); Monocytes Absolute Auto 300 /uL (0-900); Neutrophils Absolute Auto 3900 /uL (1500-7000); Neutrophils Percent Auto 61.1 % (50-75); Platelet Count 305 X10^3/uL (150-400); Red Blood Cell Count 4.68 X10^6/uL (4.0-5.2); Red Cell Distribution Width 13.1 % (11.6-14.8); White Blood Cell Count 6.4 X10^3/uL (4.5-11.0)
[2023-01-05 12:10] LABS: Alanine Aminotransferase 17 IU/L (<35); Albumin 4.4 g/dL (3.5-5.0); Albumin Globulin Ratio 1.2 (1.0-2.8); Alkaline Phosphatase 81 U/L (38-126); Aspartate Aminotransferase 20 IU/L (14-36); Bilirubin Total 0.2 mg/dL (0.2-1.3); Blood Urea Nitrogen 17 mg/dL (7-17); Calcium 9.3 mg/dL (8.4-10.2); Carbon Dioxide 24 mmol/L (22-32); Chloride 105 mmol/L (98-107); Estimated Glomerular Filt Rate > 60 mL/min (>60); Globulin 3.7 g/dL (1.7-4.1); Glucose 88 mg/dL (70-100); HEMOLYSIS < 15 (0-50); Lipase 231 U/L (23-300); Potassium 3.9 mmol/L (3.4-5.1); Sodium 138 mmol/L (137-145); Total Protein 8.1 g/dL (6.3-8.2)
[2023-01-05 12:16] VITALS: PULSE 76; O2SAT 96
[2023-01-05 12:17] VITALS: BP 152/95; PULSE 77; RESP 18; O2SAT 98
[2023-01-05] MEDS: ONDANSETRON 4 MG/2 ML INJ IV (12:19)
[2023-01-05] MEDS: MORPHINE 2 MG/ML INJ IV (12:20)
[2023-01-05 13:14] VITALS: BP 135/67
[2023-01-05 13:15] VITALS: PULSE 74
== END 2023-01-05 13:17 | disposition home or self-care (01) ==
PROVIDERS: Emergency Provider Physician Assistant
DX: R10.11 Right upper quadrant pain (principal)
CPT/HCPCS: 36415; 74177; 80053; 81003; 81025; 83690; 85025; 96374; 96375; 99284; J2270; J2405

== ENCOUNTER → 2024-04-06 08:06 | Outpatient (CLI) | payer OTHER, SELFPAY | PROVIDERS: Visit Provider Nurse Practitioner Family | DX: J02.9 Acute pharyngitis, unspecified (principal) | CPT/HCPCS: 87070 ==